=== PATIENT | female | born 1990 | race Two or more races ===

== ENCOUNTER 2018-05-18 22:54 | Emergency (ER) | payer MEDICAID, OTHER ==
[~2018-05-18] VITALS: Ht 167.6 cm; Wt 72.6 kg
[2018-05-18 23:16] VITALS: BP 135/82
== END 2018-05-19 00:37 | disposition left against medical advice (07) ==
LOC: ER 22:54 → EDBD 22:54 → LDRP 23:53 → ER 05-19 00:37
DX: S01.21XA Laceration without foreign body of nose, initial encounter (principal); Z53.21 Procedure and treatment not carried out due to patient leaving prior to being seen by health care provider; Y08.89XA Assault by other specified means, initial encounter; Y93.89 Activity, other specified; Y99.8 Other external cause status; Y92.89 Other specified places as the place of occurrence of the external cause

== ENCOUNTER 2018-11-28 16:56 | Emergency (ER) | payer MEDICAID ==
[~2018-11-28] VITALS: Ht 167.6 cm; Wt 72.6 kg
[2018-11-28] MEDS ORDERED: cefTRIAXone SOD 1,000 MG VL IM ONE (19:00)
[2018-11-28] MEDS ORDERED: DEXAMETHASONE SOD PHOS 10MG/1ML VIAL INJ IM ONE (19:00)
[2018-11-28 20:25] VITALS: BP 141/96
== END 2018-11-28 20:29 | disposition home or self-care (01) ==
LOC: ER 17:03
DX: S01.81XD Laceration without foreign body of other part of head, subsequent encounter (principal); Z48.01 Encounter for change or removal of surgical wound dressing; W54.0XXD Bitten by dog, subsequent encounter
CPT/HCPCS: 70140; 96372; 99283; J0696; J1100

== ENCOUNTER 2022-11-04 16:05 | Emergency (ER) | payer MEDICAID ==
[~2022-11-04] VITALS: Ht 167.6 cm; Wt 73.0 kg
[2022-11-04 16:34] VITALS: BP 127/91
== END 2022-11-04 17:12 | disposition home or self-care (01) ==
LOC: ER 16:10
DX: G51.0 Bell's palsy (principal)
CPT/HCPCS: 70450